=== PATIENT | female | born 1995 | race African-American/Black ===

== ENCOUNTER 2019-12-31 14:49 | Emergency (ER) | payer OTHER ==
[~2019-12-31] VITALS: Ht 162.6 cm; Wt 72.7 kg
[2019-12-31] MEDS ORDERED: PROAAER10 INH (15:07)
[2019-12-31] MEDS ORDERED: ZYRTTAB8 PO (15:07)
[2019-12-31] MEDS ORDERED: NEXP1IMP SC (15:07)
[2019-12-31] MEDS ORDERED: predniSONE 20 MG TAB PO ONE (15:30)
[2019-12-31] MEDS ORDERED: PRED20TA PO (17:26)
[2019-12-31 17:31] VITALS: BP 110/71
== END 2019-12-31 17:38 | disposition home or self-care (01) ==
LOC: EDBD 14:49 → M ED 14:49
DX: T78.1XXA Other adverse food reactions, not elsewhere classified, initial encounter (principal); Z91.010 Allergy to peanuts; Z91.012 Allergy to eggs; Z79.51 Long term (current) use of inhaled steroids; Z79.899 Other long term (current) drug therapy

== ENCOUNTER → 2021-04-26 | Outpatient (CLI) | payer OTHER ==
[~2021-04-26] MED LIST: NEXP1IMP SC; PRED20TA PO; PROAAER10 INH; ZYRTTAB8 PO
== END ==
LOC: M LABSMTC 11:00
PROVIDERS: ATTEND Pediatrics
DX: Z20.822 Contact with and (suspected) exposure to COVID-19 (principal)
CPT/HCPCS: C9803; U0003